=== PATIENT | female | born 1980 | race Caucasian/White ===

== ENCOUNTER 2017-10-23 12:52 | Observation (INO) | payer MEDICAID, OTHER ==
[2017-10-23] MEDS ORDERED: Iohexol 350mg/ml 100 ML ONE (13:26)
--- NOTE | 2017-10-23 13:36 | CT ---
PROCEDURE: CT HEAD WITHOUT CONTRAST. HISTORY: Right side numbness. Blurry vision. Headache. COMPARISON: None available. TECHNIQUE: Axial computed tomography images were obtained through the head/brain without intravenous contrast. Radiation dose: Total exam DLP = 836.07 mGy-cm. This CT exam was performed using one or more of the following dose reduction techniques: Automated exposure control, adjustment of the mA and/or kV according to patient size, and/or use of iterative reconstruction technique.. FINDINGS: HEMORRHAGE: No acute parenchymal, subarachnoid or extra-axial hemorrhage. BRAIN: No evidence of large acute infarct. . . No obvious parenchymal nor extra-axial mass or collection identified on this noncontrast study. Partially empty sella. Minimal low-lying cerebellar tonsils. VENTRICLES: No obstructive hydrocephalus. CALVARIUM: No acute calvarial fractures. PARANASAL SINUSES: Unremarkable as visualized. No significant inflammatory changes. MASTOID AIR CELLS: Unremarkable as visualized. No inflammatory changes. OTHER FINDINGS: Orbits and contents unremarkable. IMPRESSION: No acute intracranial hemorrhage. No evidence of large acute infarct. Note that the possibility of a small hyperacute infarct not excluded and if there is any concern , consider followup MRI of the brain. Note these findings were discussed with Dr. Fernandez defined approximately 1:32 p.m. with written down and read back verification.
--- NOTE | 2017-10-23 13:56 | CT ---
PROCEDURE: CT Angiography of the Brain and Neck. HISTORY: Right side numbness, blurry vision, headache COMPARISON: None available. TECHNIQUE: CT angiography of the intracranial and neck arteries was performed. Coronal and sagittal maximum intensity projection reformatted images were generated. Contrast Dose: Omnipaque 350, 100 cc Radiation dose:Total exam DLP = 583.86 mGy-cm. This CT exam was performed using one or more of the following dose reduction techniques: Automated exposure control, adjustment of the mA and/or kV according to patient size, and/or use of iterative reconstruction technique. FINDINGS: INTERNAL CEREBRAL ARTERIES: Unremarkable. The skull base, petrous, cavernous and supraclinoid segments are bilaterally widely patent. ANTERIOR CEREBRAL ARTERIES: Unremarkable. A1 and A2 segments are widely patent. Smaller distal branches unremarkable, as visualized. MIDDLE CEREBRAL ARTERIES: Unremarkable. M1 and M2 segments are widely patent. Perisylvian branches grossly symmetric. POSTERIOR CIRCULATION: Basilar Artery: Unremarkable. Distal Vertebral Arteries: Unremarkable. Posterior Cerebral Arteries: Unremarkable. Posterior Inferior Cerebellar Arteries: Unremarkable. NECK CTA: Common Carotid arteries: The bilateral common carotid appear widely patent from their origins to their bifurcations with no significant stenosis appreciated. No evidence to suggest common carotid artery dissection. Internal Carotid arteries: No significant stenosis is appreciated throughout the cervical internal carotid artery segments bilaterally and there is no evidence of dissection either. External Carotid arteries: Appear unremarkable bilaterally. Vertebral arteries: The bilateral vertebral arteries appear normal in caliber from their origins to their junction with the basilar artery. No significant stenosis or definite pattern of dissection. ANEURYSM/ VASCULAR MALFORMATIONS: None. OTHER FINDINGS: None. IMPRESSION: Unremarkable CT Angiography of the Brain and Neck.
[2017-10-23 14:01] LABS: BASO # 0.1 K/uL (0.0-0.2); BASO % 0.9 % (0.0-2.0); EOS # 0.1 K/uL (0.0-0.7); EOS % 1.1 % (0.0-4.0); HEMOGLOBIN 13.6 g/dL (11.0-16.0); LYMPH % 22.6 % (20.0-40.0); MEAN CELL VOLUME 84.4 fL (81.0-99.0); MEAN CORPUSCULAR HEMOGLOBIN 27.7 pg (27.0-31.0); MEAN CORPUSCULAR HGB CONC 32.9 g/dL (33.0-37.0); MEAN PLATELET VOLUME 8.1 fL (7.2-11.7); MONO % 11.3 % (0.0-10.0); NEUT # 5.8 K/uL (1.8-7.0); NEUT % 64.1 % (50.0-75.0); NRBC % 0.1 % (0.0-2.0); RBC 4.9 Mil/uL (3.80-5.20); RED CELL DISTRIBUTION WIDTH 13.5 % (11.5-14.5)
[2017-10-23 14:08] LABS: INR 1.1; PROTHROMBIN TIME 12.3 SECONDS (9.7-12.2)
--- NOTE | 2017-10-23 14:17 | RAD ---
HISTORY: Right side numbness COMPARISON: No prior. FINDINGS: LUNGS: No active pulmonary disease. PLEURA: No significant pleural effusion identified, no pneumothorax apparent. CARDIOVASCULAR: Normal. OSSEOUS STRUCTURES: No significant abnormalities. VISUALIZED UPPER ABDOMEN: Normal. OTHER FINDINGS: None. IMPRESSION: No active disease.
[2017-10-23 14:18] LABS: ALB/GLOB RATIO 1.3 (1.0-2.1); ALBUMIN 4.2 g/dL (3.5-5.0); ALT/SGPT 17 U/L (9-52); AST/SGOT 18 U/L (14-36); BLOOD UREA NITROGEN 13 mg/dL (7-17); CALCIUM 9.1 mg/dl (8.6-10.4); GFR AFRICAN-AMERICAN > 60; GFR NON-AFRICAN AMERICAN > 60; HDL CHOLESTEROL 53 mg/dL (30-70)
[2017-10-23 14:29] LABS: LDL CHOLESTEROL 98 mg/dL (0-129)
[2017-10-23] MEDS ORDERED: Magnesium Sulfate 1 gm in D5W 1 GM/100 ML BAG IVPB ONE ×2 (14:39→14:55)
[2017-10-23] MEDS ORDERED: Dexamethasone 4 mg/1 ml IVP STA (14:39)
--- NOTE | 2017-10-23 14:48 | C.PDOC ---
Time Seen by Provider: 10/23/17 13:13 Chief Complaint (Nursing): Weakness/Neurological Deficit History Per: Patient Onset/Duration Of Symptoms: Hrs (4), Gradual Current Symptoms Are (Timing): Better Fall Associated With With Symptoms: No Severity: Moderate Additional History Per: Prior Records - Symptoms Of CVA Character Of Deficits: Left: Vision Problems, Right: Sensory Loss, Vision Problems, Face: Sensory Loss, Arm: Sensory Loss Recent Aspirin Use: No Current Coumadin Use?: No Recent Head Trauma: No Past Medical History Reviewed: Historical Data, Nursing Documentation, Vital Signs Vital Signs: Last Vital Signs Temp 98.6 F 10/23/17 12:56 Pulse 75 10/23/17 12:56 Resp 16 10/23/17 12:56 BP 127/90 10/23/17 12:56 Pulse Ox 100 10/23/17 12:56 - Medical History PMH: Arthritis Family History: States: Unknown Family Hx - Social History Hx Tobacco Use: No Hx Alcohol Use: No Hx Substance Use: No Review Of Systems Except As Marked, All Systems Reviewed And Found Negative. Constitutional: Negative for: Fever, Weakness Eyes: Positive for: Vision Change Cardiovascular: Negative for: Chest Pain Respiratory: Negative for: Shortness of Breath Gastrointestinal: Negative for: Vomiting, Abdominal Pain Skin: Negative for: Rash Neurological: Positive for: Numbness (right), Headache. Negative for: Seizures Physical Exam - Physical Exam Appears: Non-toxic, No Acute Distress Skin: Normal Color, Warm, Dry, No Rash Head: Atraumatic, Normacephalic Eye(s): bilateral: PERRL, EOMI Neck: Normal ROM, Supple Cardiovascular: Rhythm Regular Respiratory: Normal Breath Sounds, No Accessory Muscle Use Gastrointestinal/Abdominal: Soft, No Tenderness Extremity: Normal ROM Neurological/Psych: Oriented x3, Normal Cognition, Normal Motor, Normal Sensation (subjective numbness on right side of face and RUE) ED Course And Treatment - Laboratory Results Result Diagrams: 10/23/17 13:53 10/23/17 13:53 Lab Interpretation: No Acute Changes ECG: Interpreted By Me, Viewed By Me ECG Rhythm: Sinus Rhythm, Nonspecific Changes ECG Interpretation: No Acute Changes Rate From EC O2 Sat by Pulse Oximetry: 100 Pulse Ox Interpretation: Normal - Radiology CXR: Viewed By Me, Read By Radiologist CXR Interpretation: Yes: No Acute Disease - CT Scan/US CT head Other Rad Studies (CT/US): Read By Radiologist, Radiology Report Reviewed CT/US Interpretation: IMPRESSION: No acute intracranial hemorrhage. No evidence of large acute infarct. Note that the possibility of a small hyperacute infarct not excluded and if there is any concern , consider followup MRI of the brain. CTA head/neck Other Rad Studies (CT/US): Read By Radiologist, Radiology Report Reviewed CT/US Interpretation: IMPRESSION: Unremarkable CT Angiography of the Brain and Neck. Progress Note: Blurry vision and numbness resolved. Pt still with only mild headache. Reassessment Condition: Improved - Physician Consult Information Physician Contacted: Segundo Snyder (Neuro) Outcome Of Conversation: I discussed the pt's presentation and lab, CT findings with him. He recommended giving pt Decadron, Mg sulfate, and Aspirin and to admit pt for MRI/MRA of brain. NIHSS Stroke Scale 2 - Date/Time Evaluation Performed Date Performed: 10/23/17 When Was NIHSS Performed: Code Stroke - How Severe is the Stroke Level of Consciousness: 0=Alert LOC to Questions: 0=Both comments correct LOC to commands: 0=Obeys both correctly Best Gaze: 0=Normal Visual: 0=No visual loss Facial: 0=Normal Motor Arm - Left: 0=No drift Motor Arm - Right: 0=No drift Motor Leg - Left: 0=No drift Motor Leg - Right: 0=No drift Limb Ataxia: 0=Absent Sensory: 0=Normal Best Language: 0=No aphasia Dysarthia: 0=Normal articulation Extinction & Inattention (Neglect): 0=Normal, no object Score: 0 Severity Of Stroke: 0 = No Stroke rTPA Inclusion/Exclusion - Inclusion Criteria for Altepase Patient is 18 years or Older: Yes The Clinical Diagnosis of Ischemic Stroke That is Causing a Potentially Disabling Neurological Deficit: Yes Time of Onset is Well Established to be Less Than 270 Minute Before Treatment Would Begin: Yes Risk/Benefit Discussed With Patient/Family Member Present: No - Warning to TPA With Conditions Condition: Stroke Serevity Too Mild, Rapid Improvement Disposition Discussed With : Ever Gamez Comment: He accepted pt on hospitalist service. Doctor Will See Patient In The: Hospital Counseled Patient/Family Regarding: Studies Performed, Diagnosis - Disposition Disposition: HOSPITALIZED Disposition Time: 14:53 Condition: IMPROVED - Clinical Impression Clinical Impression: Right facial numbness, RUE numbness, Blurry vision, Headache
[2017-10-23] MEDS ORDERED: Dexamethasone 4 mg/1 ml ONE (14:55)
--- NOTE | 2017-10-23 15:33 | CP.PCM.HP ---
<Rian Mathias - Last Filed: 10/23/17 16:27> History of Present Illness - History of Present Illness History of Present Illness: HPI: Patient is a 37 F with no PMH who comes to the ED after experiencing a brief episode of right sided facial weakness at approximately 0900 associated with hazy vision described as seeing "fog" but denies any blackness or symptoms of amaurosis fugax. Also associated with R. arm weakness starting at the shoulder and terminating at the elbow. No weakness of the forearm. No weakness in the leg. No LOC. Complained of breief GARCIA on the right radiating to the back of the head. Came on suddenly but was low in intensity and quickly resolved. No nausea, vomiting, no diaphoresis no chest pain or palpitations. States the symptoms only lasted a few minutes and the spontaneously resolved. She had these symptoms again while at work and again they were short in duration and resolved spontaneously. Patient was concerned so she came to the ED. She went for CT of head which was negative and CTA that was unremarkable. She will go for MRI today. Was given Mg and decadron in the ED. EKG unremarkable. Able to ambulate independently without difficulty. No speech problems. PMH: None PSH: 2 c sections and tubal ligation FH: grand parents had AR in the 50s and DM. 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 Lives with and children. Denies smoking , drinking, drug use. Meds: none All: none Present on Admission - Present on Admission Any Indicators Present on Admission: No Past Patient History - Past Social History Smoking Status: Never Smoked - MUSCULOSKELETAL/RHEUMATOLOGICAL Hx Arthritis: Yes - PSYCHIATRIC Hx Substance Use: No Meds Allergies/Adverse Reactions: Allergies Allergy/AdvReac Type Severity Reaction Status Date / Time No Known Allergies Allergy Verified 10/23/17 12:56 Physical Exam - Constitutional Appears: Well - Head Exam Head Exam: ATRAUMATIC, NORMAL INSPECTION, NORMOCEPHALIC - Eye Exam Eye Exam: EOMI, Normal appearance, PERRL Pupil Exam: NORMAL ACCOMODATION, PERRL - ENT Exam ENT Exam: Mucous Membranes Moist, Normal Exam - Neck Exam Neck exam: Positive for: Normal Inspection - Respiratory Exam Respiratory Exam: Clear to Auscultation Bilateral, NORMAL BREATHING PATTERN - Cardiovascular Exam Cardiovascular Exam: REGULAR RHYTHM - GI/Abdominal Exam GI & Abdominal Exam: Normal Bowel Sounds, Soft. absent: Distended, Tenderness - Extremities Exam Extremities exam: Positive for: normal inspection. Negative for: joint swelling , tenderness - Back Exam Back exam: NORMAL INSPECTION - Neurological Exam Neurological exam: Alert, CN II-XII Intact, Normal Gait, Oriented x3, Reflexes Normal - Psychiatric Exam Psychiatric exam: Normal Affect, Normal Mood - Skin Skin Exam: Dry, Intact, Normal Color, Warm Results - Vital Signs Recent Vital Signs: Last Vital Signs Temp 98.6 F 10/23/17 12:56 Pulse 75 10/23/17 12:56 Resp 16 10/23/17 12:56 BP 127/90 10/23/17 12:56 Pulse Ox 100 10/23/17 14:55 - Labs Result Diagrams: 10/23/17 13:53 10/23/17 13:53 Labs: Laboratory Results - last 24 hr 10/23/17 10/23/17 10/23/17 13:07 13:53 13:53 WBC 9.0 RBC 4.90 Hgb 13.6 Hct 41.4 MCV 84.4 MCH 27.7 MCHC 32.9 L RDW 13.5 Plt Count 265 MPV 8.1 Neut % (Auto) 64.1 Lymph % (Auto) 22.6 [place] % (Auto) 11.3 H Eos % (Auto) 1.1 Baso % (Auto) 0.9 Neut # (Auto) 5.8 Lymph # (Auto) 2.0 [place] # (Auto) 1.0 H Eos # (Auto) 0.1 Baso # (Auto) 0.1 PT 12.3 H INR 1.1 APTT 30 Sodium Potassium Chloride Carbon Dioxide Anion Gap BUN Creatinine Est GFR ( Amer) Est GFR (Non-Af Amer) POC Glucose (mg/dL) 114 H Random Glucose Hemoglobin A1c Calcium Total Bilirubin AST ALT Alkaline Phosphatase Troponin I Total Protein Albumin Globulin Albumin/Globulin Ratio Triglycerides Cholesterol LDL Cholesterol Direct HDL Cholesterol Blood Type Antibody Screen 10/23/17 10/23/17 10/23/17 13:53 13:53 13:53 WBC RBC Hgb Hct MCV MCH MCHC RDW Plt Count MPV Neut % (Auto) Lymph % (Auto) [place] % (Auto) Eos % (Auto) Baso % (Auto) Neut # (Auto) Lymph # (Auto) [place] # (Auto) Eos # (Auto) Baso # (Auto) PT INR APTT Sodium 140 Potassium 4.5 Chloride 101 Carbon Dioxide 30 Anion Gap 13 BUN 13 Creatinine 0.8 Est GFR ( Amer) > 60 Est GFR (Non-Af Amer) > 60 POC Glucose (mg/dL) Random Glucose 88 Hemoglobin A1c 5.1 Calcium 9.1 Total Bilirubin 0.6 AST 18 ALT 17 Alkaline Phosphatase 114 Troponin I < 0.0120 Total Protein 7.5 Albumin 4.2 Globulin 3.3 Albumin/Globulin Ratio 1.3 Triglycerides 103 Cholesterol 172 LDL Cholesterol Direct 98 HDL Cholesterol 53 Blood Type O POSITIVE Antibody Screen Negative Assessment & Plan (1) Right facial numbness Assessment and Plan: symptoms have since resolved. NIHSS 0. Dr. Snyder consulted. CT head negative. CTA unremarkble. EKG unremarkable. Going for MRI/MRA today. Will order venous doppler, repeat ekg, echo. Given ASA, decadron and Mg in the ED. PT/OT. Very unlikely to be stroke. More likely Migraine GARCIA. Will follow MRI. Admit for obs and likely dc in am. Status: Resolved Priority: Medium <Ever Gamez - Last Filed: 10/26/17 14:51> Results - Vital Signs Recent Vital Signs: Last Vital Signs Temp 98.1 F 10/24/17 07:00 Pulse 129 H 10/24/17 07:08 Resp 20 10/24/17 07:00 BP 114/77 10/24/17 07:00 Pulse Ox 98 10/24/17 07:08 - Labs Result Diagrams: 10/23/17 13:53 10/23/17 13:53 Attending/Attestation - Attestation I have personally seen and examined this patient.: Yes I have fully participated in the care of the patient.: Yes I have reviewed all pertinent clinical information: Yes Notes (Text): (1) Right facial numbness tia/cva
--- NOTE | 2017-10-23 16:57 | MRI ---
PROCEDURE: MRI BRAIN WITHOUT CONTRAST HISTORY: R/O TIA COMPARISON: Noncontrast head CT from 10/23/2017. TECHNIQUE: Multiplanar, multisequence MR images of the brain were obtained without intravenous contrast enhancement. FINDINGS: HEMORRHAGE: None DWI: No evidence of an acute or early subacute infarction. BRAIN PARENCHYMA: There are mild chronic microangiopathic changes. There is no mass, mass effect or abnormal extra-axial fluid collection. There is no territorial infarction. The midline sagittal structures are normal. VENTRICLES: There is mild age-related global parenchymal volume loss and proportionate enlargement of the ventricles and cortical sulci. CRANIUM: There is normal bone marrow signal pattern. ORBITS: Grossly unremarkable. PARANASAL SINUSES/MASTOIDS: Predominantly clear. VASCULAR SYSTEM: There are normal signal voids in the larger intracranial arteries. OTHER FINDINGS: None. IMPRESSION: No acute intracranial abnormality. Specifically, no evidence for acute infarction.
--- NOTE | 2017-10-23 17:14 | MRI ---
PROCEDURE: Magnetic Resonance Angiography Brain HISTORY: R/O TIA COMPARISON: None available. TECHNIQUE: 3D time of flight MR angiography of the intracranial arteries was performed. Rotating maximum intensity projection images were generated. FINDINGS: INTERNAL CAROTID ARTERIES: Normal flow related signal. The skull base, petrous, cavernous and supraclinoid segments are bilaterally widely patient. ANTERIOR CEREBRAL ARTERIES: Normal flow related signal . A1 and A2 segments are widely patent. Smaller distal branches unremarkable, as visualized. MIDDLE CEREBRAL ARTERIES: Normal flow related signal . M1 and M2 segments are widely patent. Perisylvian branches grossly symmetric. POSTERIOR CIRCULATION: Basilar Artery: Normal flow related signal . Distal Vertebral Arteries: Normal flow related signal . Posterior Cerebral Arteries: Normal flow related signal . Posterior Inferior Cerebellar Arteries: Normal flow related signal . ANEURYSM/ VASCULAR MALFORMATIONS: None. OTHER FINDINGS: None. IMPRESSION: Normal MR angiography of the brain.
[2017-10-23 17:24] LABS: SQUAMOUS EPITHIAL 4 /hpf (0-5); URINE BILIRUBIN NEGATIVE (NEGATIVE); URINE BLOOD NEGATIVE (NEGATIVE); URINE CLARITY Clear (Clear); URINE COLOR Yellow (YELLOW); URINE GLUCOSE (UA) NORMAL (Normal); URINE LEUKOCYTE ESTERASE NEG Leu/uL (Negative); URINE PROTEIN NEGATIVE (NEGATIVE); URINE UROBILINOGEN NORMAL mg/dL (0.2-1.0)
[2017-10-23 17:47] VITALS: RESP 20
--- NOTE | 2017-10-23 18:50 | CP.PCM.CON ---
History of Present Illness - History of Present Illness History of Present Illness: Ms. Talley is a 37-year-old woman with a past medical history of headaches, who presented today with a severe headache associated with right facial numbness and blurry vision. CT scan of the head was normal. When she returned from CT scan, her vision was clear and she no longer had the numbness. She continued to have headache. She received Decadron, Magnesium sulfate and aspirin. When I went to see the patient, she said that her headache was nearly gone as well. MRI of the brain and MRA of the brain were normal. Review of Systems - Review of Systems All systems: reviewed and no additional remarkable complaints except Past Patient History - Past Social History Smoking Status: Never Smoked - MUSCULOSKELETAL/RHEUMATOLOGICAL Hx Arthritis: Yes - PSYCHIATRIC Hx Substance Use: No Meds Allergies/Adverse Reactions: Allergies Allergy/AdvReac Type Severity Reaction Status Date / Time No Known Allergies Allergy Verified 10/23/17 12:56 - Medications Medications: Current Medications Enoxaparin Sodium (Lovenox) 40 mg SC DAILY CHAVEZ Physical Exam - Neurological Exam Neurological exam: Alert, CN II-XII Intact, Normal Gait, Oriented x3, Reflexes Normal Additional comments: NIHSS = 0 Results - Vital Signs Recent Vital Signs: Last Vital Signs Temp 98.4 F 10/23/17 17:47 Pulse 86 10/23/17 17:47 Resp 20 10/23/17 17:47 BP 124/83 10/23/17 17:47 Pulse Ox 95 10/23/17 17:47 - Labs Result Diagrams: 10/23/17 13:53 10/23/17 13:53 Labs: Laboratory Results - last 24 hr 10/23/17 10/23/17 10/23/17 13:07 13:53 13:53 WBC 9.0 RBC 4.90 Hgb 13.6 Hct 41.4 MCV 84.4 MCH 27.7 MCHC 32.9 L RDW 13.5 Plt Count 265 MPV 8.1 Neut % (Auto) 64.1 Lymph % (Auto) 22.6 [place] % (Auto) 11.3 H Eos % (Auto) 1.1 Baso % (Auto) 0.9 Neut # (Auto) 5.8 Lymph # (Auto) 2.0 [place] # (Auto) 1.0 H Eos # (Auto) 0.1 Baso # (Auto) 0.1 PT 12.3 H INR 1.1 APTT 30 Sodium Potassium Chloride Carbon Dioxide Anion Gap BUN Creatinine Est GFR ( Amer) Est GFR (Non-Af Amer) POC Glucose (mg/dL) 114 H Random Glucose Hemoglobin A1c Calcium Total Bilirubin AST ALT Alkaline Phosphatase Troponin I Total Protein Albumin Globulin Albumin/Globulin Ratio Triglycerides Cholesterol LDL Cholesterol Direct HDL Cholesterol Urine Color Urine Clarity Urine pH Ur Specific [place] Urine Protein Urine Glucose (UA) Urine Ketones Urine Blood Urine Nitrate Urine Bilirubin Urine Urobilinogen Ur Leukocyte Esterase Urine WBC (Auto) Urine RBC (Auto) Ur Squamous Epith Cells Urine HCG, Qual Blood Type Antibody Screen 10/23/17 10/23/17 10/23/17 13:53 13:53 13:53 WBC RBC Hgb Hct MCV MCH MCHC RDW Plt Count MPV Neut % (Auto) Lymph % (Auto) [place] % (Auto) Eos % (Auto) Baso % (Auto) Neut # (Auto) Lymph # (Auto) [place] # (Auto) Eos # (Auto) Baso # (Auto) PT INR APTT Sodium 140 Potassium 4.5 Chloride 101 Carbon Dioxide 30 Anion Gap 13 BUN 13 Creatinine 0.8 Est GFR ( Amer) > 60 Est GFR (Non-Af Amer) > 60 POC Glucose (mg/dL) Random Glucose 88 Hemoglobin A1c 5.1 Calcium 9.1 Total Bilirubin 0.6 AST 18 ALT 17 Alkaline Phosphatase 114 Troponin I < 0.0120 Total Protein 7.5 Albumin 4.2 Globulin 3.3 Albumin/Globulin Ratio 1.3 Triglycerides 103 Cholesterol 172 LDL Cholesterol Direct 98 HDL Cholesterol 53 Urine Color Urine Clarity Urine pH Ur Specific [place] Urine Protein Urine Glucose (UA) Urine Ketones Urine Blood Urine Nitrate Urine Bilirubin Urine Urobilinogen Ur Leukocyte Esterase Urine WBC (Auto) Urine RBC (Auto) Ur Squamous Epith Cells Urine HCG, Qual Blood Type O POSITIVE Antibody Screen Negative 10/23/17 10/23/17 17:11 17:11 WBC RBC Hgb Hct MCV MCH MCHC RDW Plt Count MPV Neut % (Auto) Lymph % (Auto) [place] % (Auto) Eos % (Auto) Baso % (Auto) Neut # (Auto) Lymph # (Auto) [place] # (Auto) Eos # (Auto) Baso # (Auto) PT INR APTT Sodium Potassium Chloride Carbon Dioxide Anion Gap BUN Creatinine Est GFR ( Amer) Est GFR (Non-Af Amer) POC Glucose (mg/dL) Random Glucose Hemoglobin A1c Calcium Total Bilirubin AST ALT Alkaline Phosphatase Troponin I Total Protein Albumin Globulin Albumin/Globulin Ratio Triglycerides Cholesterol LDL Cholesterol Direct HDL Cholesterol Urine Color Yellow Urine Clarity Clear Urine pH 5.0 Ur Specific [place] 1.005 Urine Protein Negative Urine Glucose (UA) Normal Urine Ketones Negative Urine Blood Negative Urine Nitrate Negative Urine Bilirubin Negative Urine Urobilinogen Normal Ur Leukocyte Esterase Neg Urine WBC (Auto) < 1 Urine RBC (Auto) 2 Ur Squamous Epith Cells 4 Urine HCG, Qual Negative Blood Type Antibody Screen Assessment & Plan (1) Complicated migraine Assessment and Plan: Will monitor the patient overnight for resolution of symptoms. Continue conservative management. Continue magnesium oxide 400 mg BID. Follow up with outpatient neurology after two weeks. Thank you. Status: Acute Priority: High
[2017-10-24 07:38] VITALS: BP 114/77; TEMP 98.1; O2SAT 98
[2017-10-24 09:01] VITALS: PULSE 129
--- NOTE | 2017-10-24 09:49 | CP.PCM.DIS ---
<Rian Mathias - Last Filed: 10/24/17 15:18> Provider - Provider Date of Admission: 10/23/17 14:55 Attending physician: Ever Gamez MD Consults: Neuro: Lillian Time Spent in preparation of Discharge (in minutes): 45 Diagnosis - Discharge Diagnosis (1) Right facial numbness Status: Resolved Priority: Medium Hospital Course - Lab Results Lab Results: Most Recent Lab Values WBC 9.0 K/uL (4.8-10.8) 10/23/17 13:53 RBC 4.90 Mil/uL (3.80-5.20) 10/23/17 13:53 Hgb 13.6 g/dL (11.0-16.0) 10/23/17 13:53 Hct 41.4 % (34.0-47.0) 10/23/17 13:53 MCV 84.4 fL (81.0-99.0) 10/23/17 13:53 MCH 27.7 pg (27.0-31.0) 10/23/17 13:53 MCHC 32.9 g/dL (33.0-37.0) L 10/23/17 13:53 RDW 13.5 % (11.5-14.5) 10/23/17 13:53 Plt Count 265 K/uL (130-400) 10/23/17 13:53 MPV 8.1 fL (7.2-11.7) 10/23/17 13:53 Neut % (Auto) 64.1 % (50.0-75.0) 10/23/17 13:53 Lymph % (Auto) 22.6 % (20.0-40.0) 10/23/17 13:53 [place] % (Auto) 11.3 % (0.0-10.0) H 10/23/17 13:53 Eos % (Auto) 1.1 % (0.0-4.0) 10/23/17 13:53 Baso % (Auto) 0.9 % (0.0-2.0) 10/23/17 13:53 Neut # (Auto) 5.8 K/uL (1.8-7.0) 10/23/17 13:53 Lymph # (Auto) 2.0 K/uL (1.0-4.3) 10/23/17 13:53 [place] # (Auto) 1.0 K/uL (0.0-0.8) H 10/23/17 13:53 Eos # (Auto) 0.1 K/uL (0.0-0.7) 10/23/17 13:53 Baso # (Auto) 0.1 K/uL (0.0-0.2) 10/23/17 13:53 PT 12.3 SECONDS (9.7-12.2) H 10/23/17 13:53 INR 1.1 10/23/17 13:53 APTT 30 SECONDS (21-34) 10/23/17 13:53 Sodium 140 mmol/L (132-148) 10/23/17 13:53 Potassium 4.5 mmol/L (3.6-5.2) 10/23/17 13:53 Chloride 101 mmol/L (98-107) 10/23/17 13:53 Carbon Dioxide 30 mmol/L (22-30) 10/23/17 13:53 Anion Gap 13 (10-20) 10/23/17 13:53 BUN 13 mg/dL (7-17) 10/23/17 13:53 Creatinine 0.8 mg/dL (0.7-1.2) 10/23/17 13:53 Est GFR ( Amer) > 60 10/23/17 13:53 Est GFR (Non-Af Amer) > 60 10/23/17 13:53 POC Glucose (mg/dL) 114 mg/dL (65-110) H 10/23/17 13:07 Random Glucose 88 mg/dL (65-105) 10/23/17 13:53 Hemoglobin A1c 5.1 % (4.2-6.5) 10/23/17 13:53 Calcium 9.1 mg/dl (8.6-10.4) 10/23/17 13:53 Total Bilirubin 0.6 mg/dL (0.2-1.3) 10/23/17 13:53 AST 18 U/L (14-36) 10/23/17 13:53 ALT 17 U/L (9-52) 10/23/17 13:53 Alkaline Phosphatase 114 U/L (38-126) 10/23/17 13:53 Troponin I < 0.0120 ng/mL (0.00-0.120) 10/23/17 13:53 Total Protein 7.5 g/dL (6.3-8.3) 10/23/17 13:53 Albumin 4.2 g/dL (3.5-5.0) 10/23/17 13:53 Globulin 3.3 gm/dL (2.2-3.9) 10/23/17 13:53 Albumin/Globulin Ratio 1.3 (1.0-2.1) 10/23/17 13:53 Triglycerides 103 mg/dL (0-149) 10/23/17 13:53 Cholesterol 172 mg/dL (0-199) 10/23/17 13:53 LDL Cholesterol Direct 98 mg/dL (0-129) 10/23/17 13:53 HDL Cholesterol 53 mg/dL (30-70) 10/23/17 13:53 Urine Color Yellow (YELLOW) 10/23/17 17:11 Urine Clarity Clear (Clear) 10/23/17 17:11 Urine pH 5.0 (5.0-8.0) 10/23/17 17:11 Ur Specific [place] 1.005 (1.003-1.030) 10/23/17 17:11 Urine Protein Negative mg/dL (NEGATIVE) 10/23/17 17:11 Urine Glucose (UA) Normal mg/dL (Normal) 10/23/17 17:11 Urine Ketones Negative mg/dL (NEGATIVE) 10/23/17 17:11 Urine Blood Negative (NEGATIVE) 10/23/17 17:11 Urine Nitrate Negative (NEGATIVE) 10/23/17 17:11 Urine Bilirubin Negative (NEGATIVE) 10/23/17 17:11 Urine Urobilinogen Normal mg/dL (0.2-1.0) 10/23/17 17:11 Ur Leukocyte Esterase Neg Kamran/uL (Negative) 10/23/17 17:11 Urine WBC (Auto) < 1 /hpf (0-5) 10/23/17 17:11 Urine RBC (Auto) 2 /hpf (0-3) 10/23/17 17:11 Ur Squamous Epith Cells 4 /hpf (0-5) 10/23/17 17:11 Urine HCG, Qual Negative (NEGATIVE) 10/23/17 17:11 Blood Type O POSITIVE 10/23/17 13:53 Antibody Screen Negative 10/23/17 13:53 - Hospital Course Hospital Course: On Admission: Patient is a 37 F with no PMH who comes to the ED after experiencing a brief episode of right sided facial weakness at approximately 0900 associated with hazy vision described as seeing "fog" but denies any blackness or symptoms of amaurosis fugax. Also associated with R. arm weakness starting at the shoulder and terminating at the elbow. No weakness of the forearm. No weakness in the leg. No LOC. Complained of breief GARCIA on the right radiating to the back of the head. Came on suddenly but was low in intensity and quickly resolved. No nausea , vomiting, no diaphoresis no chest pain or palpitations. States the symptoms only lasted a few minutes and the spontaneously resolved. She had these symptoms again while at work and again they were short in duration and resolved spontaneously. Patient was concerned so she came to the ED. She went for CT of head which was negative and CTA that was unremarkable. She will go for MRI today. Was given Mg and decadron in the ED. EKG unremarkable. Able to ambulate independently without difficulty. No speech problems. Hospital Course: Patient symptoms resolved. Headache improved with Mg/decadron. No weakness or numbness. CT negative, CTA negative, MRI negative, MRA negative. Echo and doppler of LE are normal. Patient discharged with Mg 400 mg PO BID and instructed to follow up outpatient with Dr. Snyder. Discharge Exam - Head Exam Head Exam: ATRAUMATIC, NORMAL INSPECTION, NORMOCEPHALIC - Eye Exam Eye Exam: EOMI, Normal appearance, PERRL Pupil Exam: NORMAL ACCOMODATION, PERRL - Respiratory Exam Respiratory Exam: Clear to PA & Lateral, NORMAL BREATHING PATTERN, UNREMARKABLE - Cardiovascular Exam Cardiovascular Exam: REGULAR RHYTHM - GI/Abdominal Exam GI & Abdominal Exam: Normal Bowel Sounds, Soft. absent: Distended, Tenderness - Neurological Exam Neurological exam: Alert, CN II-XII Intact, Normal Gait, Oriented x3, Reflexes Normal - Psychiatric Exam Psychiatric exam: Normal Affect, Normal Mood - Skin Skin Exam: Dry, Intact, Normal Color, Warm Discharge Plan - Discharge Medications Prescriptions: Magnesium Oxide [Magnesium] 400 mg PO BID 30 Days tablet - Follow Up Plan Condition: IMPROVED Disposition: HOME/ ROUTINE Instructions: Magnesium Oxide, Migraine Headache (DC) Additional Instructions: Please follow up with your primary doctor in 7-10 days Please take Magnesium oxide 400mg by mouth 2 times per day Please follow up with Dr. Snyder in his office in 7-10 days. Please come back to the ED if symptoms return. Referrals: Segundo Snyder MD [Staff Provider] - <Ever Gamez - Last Filed: 10/26/17 14:53> Provider - Provider Date of Admission: 10/23/17 14:55 Attending physician: Ever Gamez MD Hospital Course - Lab Results Lab Results: Most Recent Lab Values WBC 9.0 K/uL (4.8-10.8) 10/23/17 13:53 RBC 4.90 Mil/uL (3.80-5.20) 10/23/17 13:53 Hgb 13.6 g/dL (11.0-16.0) 10/23/17 13:53 Hct 41.4 % (34.0-47.0) 10/23/17 13:53 MCV 84.4 fL (81.0-99.0) 10/23/17 13:53 MCH 27.7 pg (27.0-31.0) 10/23/17 13:53 MCHC 32.9 g/dL (33.0-37.0) L 10/23/17 13:53 RDW 13.5 % (11.5-14.5) 10/23/17 13:53 Plt Count 265 K/uL (130-400) 10/23/17 13:53 MPV 8.1 fL (7.2-11.7) 10/23/17 13:53 Neut % (Auto) 64.1 % (50.0-75.0) 10/23/17 13:53 Lymph % (Auto) 22.6 % (20.0-40.0) 10/23/17 13:53 [place] % (Auto) 11.3 % (0.0-10.0) H 10/23/17 13:53 Eos % (Auto) 1.1 % (0.0-4.0) 10/23/17 13:53 Baso % (Auto) 0.9 % (0.0-2.0) 10/23/17 13:53 Neut # (Auto) 5.8 K/uL (1.8-7.0) 10/23/17 13:53 Lymph # (Auto) 2.0 K/uL (1.0-4.3) 10/23/17 13:53 [place] # (Auto) 1.0 K/uL (0.0-0.8) H 10/23/17 13:53 Eos # (Auto) 0.1 K/uL (0.0-0.7) 10/23/17 13:53 Baso # (Auto) 0.1 K/uL (0.0-0.2) 10/23/17 13:53 PT 12.3 SECONDS (9.7-12.2) H 10/23/17 13:53 INR 1.1 10/23/17 13:53 APTT 30 SECONDS (21-34) 10/23/17 13:53 Sodium 140 mmol/L (132-148) 10/23/17 13:53 Potassium 4.5 mmol/L (3.6-5.2) 10/23/17 13:53 Chloride 101 mmol/L (98-107) 10/23/17 13:53 Carbon Dioxide 30 mmol/L (22-30) 10/23/17 13:53 Anion Gap 13 (10-20) 10/23/17 13:53 BUN 13 mg/dL (7-17) 10/23/17 13:53 Creatinine 0.8 mg/dL (0.7-1.2) 10/23/17 13:53 Est GFR ( Amer) > 60 10/23/17 13:53 Est GFR (Non-Af Amer) > 60 10/23/17 13:53 POC Glucose (mg/dL) 114 mg/dL (65-110) H 10/23/17 13:07 Random Glucose 88 mg/dL (65-105) 10/23/17 13:53 Hemoglobin A1c 5.1 % (4.2-6.5) 10/23/17 13:53 Calcium 9.1 mg/dl (8.6-10.4) 10/23/17 13:53 Total Bilirubin 0.6 mg/dL (0.2-1.3) 10/23/17 13:53 AST 18 U/L (14-36) 10/23/17 13:53 ALT 17 U/L (9-52) 10/23/17 13:53 Alkaline Phosphatase 114 U/L (38-126) 10/23/17 13:53 Troponin I < 0.0120 ng/mL (0.00-0.120) 10/23/17 13:53 Total Protein 7.5 g/dL (6.3-8.3) 10/23/17 13:53 Albumin 4.2 g/dL (3.5-5.0) 10/23/17 13:53 Globulin 3.3 gm/dL (2.2-3.9) 10/23/17 13:53 Albumin/Globulin Ratio 1.3 (1.0-2.1) 10/23/17 13:53 Triglycerides 103 mg/dL (0-149) 10/23/17 13:53 Cholesterol 172 mg/dL (0-199) 10/23/17 13:53 LDL Cholesterol Direct 98 mg/dL (0-129) 10/23/17 13:53 HDL Cholesterol 53 mg/dL (30-70) 10/23/17 13:53 Urine Color Yellow (YELLOW) 10/23/17 17:11 Urine Clarity Clear (Clear) 10/23/17 17:11 Urine pH 5.0 (5.0-8.0) 10/23/17 17:11 Ur Specific [place] 1.005 (1.003-1.030) 10/23/17 17:11 Urine Protein Negative mg/dL (NEGATIVE) 10/23/17 17:11 Urine Glucose (UA) Normal mg/dL (Normal) 10/23/17 17:11 Urine Ketones Negative mg/dL (NEGATIVE) 10/23/17 17:11 Urine Blood Negative (NEGATIVE) 10/23/17 17:11 Urine Nitrate Negative (NEGATIVE) 10/23/17 17:11 Urine Bilirubin Negative (NEGATIVE) 10/23/17 17:11 Urine Urobilinogen Normal mg/dL (0.2-1.0) 10/23/17 17:11 Ur Leukocyte Esterase Neg Kamran/uL (Negative) 10/23/17 17:11 Urine WBC (Auto) < 1 /hpf (0-5) 10/23/17 17:11 Urine RBC (Auto) 2 /hpf (0-3) 10/23/17 17:11 Ur Squamous Epith Cells 4 /hpf (0-5) 10/23/17 17:11 Urine HCG, Qual Negative (NEGATIVE) 10/23/17 17:11 Blood Type O POSITIVE 10/23/17 13:53 Antibody Screen Negative 10/23/17 13:53 Attending/Attestation - Attestation I have personally seen and examined this patient.: Yes I have fully participated in the care of the patient.: Yes I have reviewed all pertinent clinical information, including history, physical exam and plan: Yes Notes (Text): (1) Right facial numbness likely Complicated Migrane
[2017-10-24] MEDS ORDERED: Enoxaparin 40 mg Syringe SC SCH (10:00)
--- NOTE | 2017-10-24 11:33 | VASCLAB ---
PROCEDURE: Lower Extremity Venous Duplex Exam. HISTORY: Swelling PRIORS: None. TECHNIQUE: Bilateral common femoral, femoral, popliteal and posterior tibial, peroneal and great saphenous veins were evaluated. Flow was assessed with color Doppler, compressibility, assessment of phasic flow and augmentation response. Report prepared by EUGENIA Keenan FINDINGS: RIGHT: 1. Common Femoral Vein: 1.1. Compressibility - Fully compressible: Thrombus - None : Flow - Phasic: Augmentation -Normal: Reflux - None. 2. Femoral Vein: 2.1. Compressibility - Fully compressible: Thrombus - None : Flow - Phasic: Augmentation -Normal: Reflux - None. 3. Popliteal Vein: 3.1. Compressibility - Fully compressible: Thrombus - None : Flow - Phasic: Augmentation -Normal: Reflux - None. 4. Posterior Tibial Vein: 4.1. Compressibility - Fully compressible: Thrombus - None: Flow - Phasic: Augmentation -Normal: Reflux - None. 5. Peroneal Vein: 5.1. Compressibility - Fully compressible: Thrombus - None: Flow - Phasic: Augmentation -Normal: Reflux - None. 6. Great Saphenous Vein: 6.1. Compressibility - Fully compressible: Thrombus - None: Flow - Phasic: Augmentation - Normal: Reflux - None. LEFT: 1. Common Femoral Vein: 1.1. Compressibility - Fully compressible: Thrombus - None: Flow - Phasic: Augmentation -Normal: Reflux - None. 2. Femoral Vein: 2.1. Compressibility - Fully compressible: Thrombus - None: Flow - Phasic: Augmentation -Normal: Reflux - None. 3. Popliteal Vein: 3.1. Compressibility - Fully compressible: Thrombus - None : Flow - Phasic: Augmentation -Normal: Reflux - None. 4. Posterior Tibial Vein: 4.1. Compressibility - Fully compressible: Thrombus - None: Flow - Phasic: Augmentation -Normal: Reflux - None. 5. Peroneal Vein: 5.1. Compressibility - Fully compressible: Thrombus - None: Flow - Phasic: Augmentation -Normal: Reflux - None. 6. Great Saphenous Vein: 6.1. Compressibility - Fully compressible: Thrombus - None: Flow - Phasic: Augmentation - Normal: Reflux - None. OTHER FINDINGS: Right: None significant. Left: None significant. IMPRESSION: Right: No evidence of deep or superficial vein thrombosis of the right lower extremity. Normal valve function noted of the right side. Left: No evidence of deep or superficial vein thrombosis of the left lower extremity. Normal valve function noted of the left side.
--- NOTE | 2017-10-24 13:45 | CARD ---
APPROVED REPORT EXAM: Two-dimensional and M-mode echocardiogram with Doppler and color Doppler. Other Information Quality : TDSRhythm : INDICATION CVA/TIA code Stroke Echo Enhancing Agent Indication: Rule Out Septal Defect Agent/Amount Used: Agitated Saline 2D DIMENSIONS IVSd0.8 (0.7-1.1cm)LVDd4.4 (3.9-5.9cm) PWd0.9 (0.7-1.1cm)LVDs2.4 (2.5-4.0cm) FS (%) 46.9 %LVEF (%)70.0 (>50%) M-Mode DIMENSIONS Left Atrium (MM)3.87 (2.5-4.0cm)IVSd0.76 (0.7-1.1cm) Aortic Root2.98 (2.2-3.7cm)LVDd5.14 (4.0-5.6cm) Aortic Cusp Exc.2.27 (1.5-2.0cm)PWd0.84 (0.7-1.1cm) FS (%) 39 %LVDs3.11 (2.0-3.8cm) LVEF (%)70 (>50%) Mitral Valve MV E Littieyf63.7cm/sMV A Exzqizsm49.7cm/sE/A ratio1.1 TDI E/Lateral E'0.0E/Medial E'0.0 LEFT VENTRICLE The left ventricle is normal size. There is normal left ventricular wall thickness. The left ventricular function is normal. The left ventricular ejection fraction is within the normal range. Viusally about 75%. No regional wall motion abnormalities noted. The left ventricular diastolic function is normal. No left ventricle thrombus noted on this study. There is no ventricular septal defect visualized. There is no left ventricular aneurysm. There is no mass noted in the left ventricle. RIGHT VENTRICLE The right ventricle is normal size. There is normal right ventricular wall thickness. The right ventricular systolic function is normal. ATRIA The left atrium size is normal. The right atrium size is normal. The interatrial septum is intact with no evidence for an atrial septal defect. AORTIC VALVE The aortic valve is normal in structure and function. No aortic regurgitation is present. There is no aortic valvular stenosis. There is no aortic valvular vegetation. MITRAL VALVE The mitral valve is normal in structure and function. There is no evidence of mitral valve prolapse. There is no mitral valve stenosis. There is no mitral valve regurgitation noted. TRICUSPID VALVE The tricuspid valve is normal in structure and function. There is no tricuspid valve regurgitation noted. There is no tricuspid valve prolapse or vegetation. There is no tricuspid valve stenosis. PULMONIC VALVE The pulmonary valve is normal in structure and function. There is no pulmonic valvular regurgitation. There is no pulmonic valvular stenosis. GREAT VESSELS The aortic root is normal in size. The ascending aorta is normal in size. The pulmonary artery is normal. The IVC is normal in size and collapses >50% with inspiration. PERICARDIAL EFFUSION The pericardium appears normal. There is no pleural effusion.
--- NOTE | 2017-10-24 14:35 | CARD ---
APPROVED REPORT EKG Measurement Heart [id number] <Conclusion> Normal sinus rhythm Possible Left atrial enlargement Low voltage QRS Septal infarct, age undetermined Abnormal ECG
--- NOTE | 2017-10-24 14:41 | CARD ---
APPROVED REPORT EKG Measurement Heart [id number] <Conclusion> Suspect arm lead reversal, interpretation assumes no reversal Normal sinus rhythm Low voltage QRS Septal infarct, age undetermined Lateral infarct, age undetermined Abnormal ECG
== END 2017-10-24 12:00 | disposition home or self-care (01) ==
LOC: C.ER 12:52 → C.9E 14:55 → C.5S 16:42
PROVIDERS: ADMIT Internal Medicine; ATTEND Internal Medicine
DX: R29.810 Facial weakness (principal); G43.909 Migraine, unspecified, not intractable, without status migrainosus
CPT/HCPCS: 70450; 70496; 70498; 70544; 70551; 71045; 80053; 80061; 81001; 82948; 83036; 84484; 84703; 85025; 85610; 85730; 86850; 86900; 93005; 93306; 93970; 96372; 96374; 96375; 99285; G0378; J1100; J1650; J3475; Q9967